=== PATIENT | male | born 1940 | race Caucasian/White ===

== ENCOUNTER 2016-06-24 15:56 | Inpatient (IN) ==
[2016-06-24 18:41] LABS: Basophils % 0.2 %; Eosinophils % 0.1 %; Hematocrit 47.6 % (37.5-50.1); Immature Granulocytes % 0.3 % (0-4); Lymphocytes # 2.6 K/mcL (0.6-4.6); Lymphocytes % 24.6 %; Mean Corpuscular HGB Conc 33.6 g/dL (31.6-35.5); Mean Corpuscular Hemoglobin 29.7 pg (28.0-33.3); Mean Corpuscular Volume 88.3 fL (83.0-100.0); Mean Platelet Volume 10.3 fL (9.4-12.4); Monocytes # 0.6 K/mcL (0.0-1.3); Monocytes % 5.4 %; Neutrophils # 7.3 K/mcL (1.6-8.9); Platelet Count 213 K/mcL (140-400); Red Blood Count 5.39 M/mcL (4.19-5.50); Red Cell Distribution Width 12.6 % (11.5-14.5); Segmented Neutrophils % 69.4 %
[2016-06-24 18:50] LABS: BUN/Creatinine Ratio 21 (6-26); Blood Urea Nitrogen 18 mg/dL (8-26); Calcium 10.1 mg/dL (8.6-10.8); Carbon Dioxide 21 mEq/L (19-29); Chloride 103 mEq/L (98-109); Glucose 158 mg/dL (70-99); Osmolality,Calculated 289 (280-300); Potassium 4.5 mEq/L (3.5-4.5); Sodium 137 mEq/L (136-145); eGFR For African Americans > 60 (> 60); eGFR For Non-African Americans > 60 (> 60)
[2016-06-24 18:57] LABS: Prothrombin Time 11.2 Seconds (9.4-12.1)
[2016-06-24] MEDS ORDERED: Aspirin 81 MG TAB.CHEW PO ONE (19:12)
[2016-06-24] MEDS ORDERED: *HR* Heparin 5,000 UNIT/ML VIAL IVP PRN ×2 (19:26)
[2016-06-24] MEDS ORDERED: *HR* Heparin 5,000 UNIT/ML VIAL IVP ONE (19:26)
[2016-06-24] MEDS ORDERED: Heparin 25,000 UNIT/500 ML D5W 25,000 UNIT/500 ML MLS IVC SCH (19:30)
--- NOTE | 2016-06-24 19:32 | Emergency Department Note ---
Disposition Clinical Impression: Non-STEMI (non-ST elevated myocardial infarction) Disposition: Admitted As Inpatient Condition: Good Time of Disposition: 19:33 Chest Pain HPI - General Chief Complaint: ED Chest Pain Stated Complaint: Abnormal EKG/Sent from Time Seen by Provider: 06/24/16 18:19 Source: patient Limitations: no limitations Vital Signs Reviewed: Yes Nursing Notes Reviewed: Yes - History of Present Illness HPI Narrative: 75-year-old male presents with concerns of epigastric pain and indigestion. Patient states symptoms have been intermittent over the past 5 days with exertion and at rest. Pt denies diaphoresis, palpitations, near syncopal symptoms, chest pain. No history of cardiac disease in the past. Patient's only risk factor is a family history of cardiac disease. Otherwise patient does not smoke, have hypertension or hyperlipidemia or diabetes. Severity scale (1-10): 6 - Related Data Home Medications Medication Instructions Recorded Confirmed No Known Home Drugs 06/24/16 06/24/16 Allergies Allergy/AdvReac Type Severity Reaction Status Date / Time No Known Allergies Allergy Verified 06/24/16 16:22 All systems ED: reviewed and negative except as stated. Constitutional: Denies: fever, chills Cardiovascular: Denies: chest pain, palpitations, dyspnea on exertion, syncope Respiratory: Denies: cough, dyspnea Gastrointestinal: Reports: abdominal pain. Denies: nausea, vomiting, diarrhea Genitourinary: Denies: urgency, dysuria Chest Pain PMH - Past Medical History Medical history: Reports: non-contributory, GERD Psychiatric history: Reports: no psych history - Social History Smoking Status: Never smoker Alcohol use: Reports: none Drug use: Reports: none Physical Exam General: Alert and in no acute distress Skin: Warm, dry, intact Head: Normocephalic and atraumatic Neck: Supple, trachea midline and no tenderness Cardiovascular: RRR, no murmur, normal perfusion Respiratory: CTAB, no wheezing, cough, or respiratory distress Musculoskeletal: Normal strength, no tenderness, swelling or deformity GI: Soft, nontender, nondistended. Bowel sounds present Neuro: A&O to person, place, time and situation. No focal deficits noted on exam Psychiatric: cooperative and appropriate mood and affect. - General Limitations: no limitations General appearance: alert, in no apparent distress Course Vital Signs Temperature 98.0 F 06/24/16 16:17 Pulse Rate 60 06/24/16 16:17 Respiratory Rate 16 06/24/16 16:17 Blood Pressure 145/78 06/24/16 16:17 O2 Sat by Pulse Oximetry 96 06/24/16 16:17 Temperature 97.8 F 06/24/16 21:54 Pulse Rate 63 06/24/16 21:54 Respiratory Rate 16 06/24/16 21:54 Blood Pressure 127/72 06/24/16 21:54 O2 Sat by Pulse Oximetry 96 06/24/16 21:54 Oxygen Delivery Oxygen Delivery Room Air Chest Pain - MDM Narrative Medical decision making narrative: EEG did not show evidence of STEMI. Patient had elevated troponin. He will be admitted to the hospital for further care and evaluation. He was given aspirin in the emergency department and started on heparin. Patient reports a mild sensation of indigestion but denies chest pain, nausea, vomiting, diaphoresis or palpitations. - Medical Records Medical records reviewed: Yes I reviewed the patient's medical records. - Lab Data Lab results reviewed: Yes I reviewed the patient's lab results. Result diagrams: 06/24/16 18:29 06/24/16 18:29 Lab Results 06/24/16 06/24/16 06/24/16 Range/Units 18:29 18:29 18:29 WBC 10.6 (4.3-11.1) K/mcL RBC 5.39 (4.19-5.50) M/mcL Hgb 16.0 (12.9-16.9) g/dL Hct 47.6 (37.5-50.1) % MCV 88.3 (83.0-100.0) fL MCH 29.7 (28.0-33.3) pg MCHC 33.6 (31.6-35.5) g/dL RDW 12.6 (11.5-14.5) % Plt Count 213 (140-400) K/mcL MPV 10.3 (9.4-12.4) fL Immature Gran % 0.3 (0-4) % Seg Neutrophils % 69.4 % Lymphocytes % 24.6 % Monocytes % 5.4 % Eosinophils % 0.1 % Basophils % 0.2 % Neutrophils # 7.3 (1.6-8.9) K/mcL Lymphocytes # 2.6 (0.6-4.6) K/mcL Monocytes # 0.6 (0.0-1.3) K/mcL Eosinophils # 0.0 (0.0-0.6) K/mcL Basophils # 0.0 (0.0-0.2) K/mcL PT 11.2 (9.4-12.1) Seconds INR 1.0 APTT 25.9 L (26.0-36.0) Seconds Sodium 137 (136-145) mEq/L Potassium 4.5 (3.5-4.5) mEq/L Chloride 103 (98-109) mEq/L Carbon Dioxide 21 (19-29) mEq/L BUN 18 (8-26) mg/dL Creatinine 0.87 (0.72-1.25) mg/dL Est GFR ( Amer) > 60 (> 60) Est GFR (Non-Af Amer) > 60 (> 60) BUN/Creatinine Ratio 21 (6-26) Glucose 158 H (70-99) mg/dL Calculated Osmolality 289 (280-300) Calcium 10.1 (8.6-10.8) mg/dL Troponin I (0-0.03) ng/mL 06/24/16 Range/Units 18:29 WBC (4.3-11.1) K/mcL RBC (4.19-5.50) M/mcL Hgb (12.9-16.9) g/dL Hct (37.5-50.1) % MCV (83.0-100.0) fL MCH (28.0-33.3) pg MCHC (31.6-35.5) g/dL RDW (11.5-14.5) % Plt Count (140-400) K/mcL MPV (9.4-12.4) fL Immature Gran % (0-4) % Seg Neutrophils % % Lymphocytes % % Monocytes % % Eosinophils % % Basophils % % Neutrophils # (1.6-8.9) K/mcL Lymphocytes # (0.6-4.6) K/mcL Monocytes # (0.0-1.3) K/mcL Eosinophils # (0.0-0.6) K/mcL Basophils # (0.0-0.2) K/mcL PT (9.4-12.1) Seconds INR APTT (26.0-36.0) Seconds Sodium (136-145) mEq/L Potassium (3.5-4.5) mEq/L Chloride (98-109) mEq/L Carbon Dioxide (19-29) mEq/L BUN (8-26) mg/dL Creatinine (0.72-1.25) mg/dL Est GFR ( Amer) (> 60) Est GFR (Non-Af Amer) (> 60) BUN/Creatinine Ratio (6-26) Glucose (70-99) mg/dL Calculated Osmolality (280-300) Calcium (8.6-10.8) mg/dL Troponin I 0.68 H* (0-0.03) ng/mL - EKG Data EKG attestation: Yes I reviewed and interpreted this EKG. EKG results narrative: ECG shows a normal sinus rhythm with a rate of 82 without evidence of STEMI, unchanged from previous. Second EKG showed normal sinus rhythm with rate of 58 without evidence of STEMI. Heart Score - Score History: Moderately Suspicious EKG: Non Specific repolarisation Disturbance Age: Greater than 65 Risk Factors: 1-2 risk factors Troponin: Greater than 3x normal limit HEART Score Total: 7
[2016-06-24 20:07] LABS: Activated Partial Thrombo Time 25.9 Seconds (26.0-36.0)
--- NOTE | 2016-06-24 22:25 | Internal Med History&Physical ---
Date of Encounter: 06/24/16 Time of Encounter: 22:22 Assessment and Plan (1) Non-STEMI (non-ST elevated myocardial infarction) Current visit: Yes Status: Acute Elevated troponins with some unspecific chest pain along with epigastric symptoms. Continue with heparin drip, aspirin, statins. Echo to evaluate left ventricular function. Cardiology evaluation. Discussed with the patient and his family member. (2) Hyperglycemia Current visit: Yes Status: Acute Accuchecks Hemoglobin A1c. Insulin sliding scale. (3) Gout Current visit: Yes Status: Acute Not acute event. Check uric acid levels. Qualifiers: Gout site: unspecified site Gout etiology: unspecified cause Chronicity: chronic Presence of tophus: without tophus Qualified Code(s): M1A.9XX0 - Chronic gout, unspecified, without tophus (tophi) Internal Medicine - H&P: HPI Chief complaint: Epigastric discomfort Admitted From: Emergency Dept Plans for Post Hospital Care: Home History of present illness: Mr. Cramer is a 75 year old male but make a history of gout and he presented to the emergency department complaining of 4-5 days of persistent epigastric discomfort which partially relieved with the use of [id number] medications. The patient also states that has been complaining of some type tightness, he denies respiratory symptoms, denies cough, fever, chills, shortness of breath. 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 He Was Never a Smoker, He Does Not Drink Alcohol. He Does Not Take Any Bfet-Mdv-Bomdtsx Medications, only baby aspirin. He does not take any prescribed medications, he takes medications for his gout on a when necessary basis, he does not know the name of the medication for gout. The patient had initial workup which revealed mild elevation of troponins, he was started on heparin drip. The patient has been admitted for further management and workup. Past Med Surg Social Fam HX - Past Medical History Medical history: non-contributory, GERD Psychiatric history: no psych history - Social History Smoking Status: Never smoker Smokeless Tobacco Status: No Alcohol use: none Drug use: none Internal Medicine - H&P: Meds No Known Home Drugs 06/24/16 [History] Allergies No Known Allergies Allergy (Verified 06/24/16 16:22) All Systems PM: A 10-system review of systems was performed and is negative for pertinent findings except as documented above in the HPI. - Constitutional Constitutional: as per HPI, no chills, no fever(s), no night sweats - EENT Eyes: as per HPI, no change in vision, no discharge, no pain, no photophobia Ears: as per HPI, no ear discharge, no ear pain, no tinnitus Nose, mouth and throat: as per HPI, no dysphagia, no nasal discharge, no neck pain, no sore throat - Breasts Breasts: as per HPI - Cardiovascular Cardiovascular ROS IM: as per HPI, chest pain, no diaphoresis, no dyspnea, no lightheadedness, no palpitations, no syncope - Respiratory Respiratory: as per HPI, no cough, no dyspnea, no wheezing, no excessive phlegm production - Gastrointestinal Gastrointestinal: as per HPI, no abdominal pain, no diarrhea, no hematemesis, no hematochezia, no melena, no nausea, no vomiting - Genitourinary Genitourinary ROS male: as per HPI - Musculoskeletal Musculoskeletal ROS IM: as per HPI, no numbness, no tingling - Integumentary Integumentary IM: as per HPI, no rash, no unusual bruising - Neurological Neurological ROS: as per HPI, no confusion, no convulsions, no focal weakness, no numbness, no tingling, no tremor(s) - Psychiatric Psychiatric: as per HPI - Endocrine Endocrine IM: as per HPI - Hematologic/Lymphatic Hematologic/Lymphatic: as per HPI, no easy bruising - Allergic/Immunologic Allergic/Immunologic: as per HPI - Constitutional Vitals: Temp Pulse Resp BP Pulse Ox 97.8 F 63 16 127/72 96 06/24/16 21:54 06/24/16 21:54 06/24/16 21:54 06/24/16 21:54 06/24/16 21:54 General appearance: Present: cooperative, A&O X 3, pleasant, no acute distress - Head Head exam: Present: atraumatic, normocephalic - Eye Eye exam: Present: PERRL, conjuntiva pink, sclera anicteric Pupils: Present: PERRL - Neck Neck exam general surgery: Present: supple, trachea midline. Absent: lymphadenopathy - Respiratory Respiratory exam: Present: CTAB. Absent: accessory muscle use, rales, rhonchi, wheezes - Cardiovascular Cardiovascular exam: Present: RRR, +S1, +S2. Absent: diastolic murmur, gallop, rubs, systolic murmur - GI/Abdominal GI/Abdominal exam: Present: normal bowel sounds, soft, no peritoneal signs. Absent: distended, tenderness - Extremities Exam Extremities exam: Present: pedal edema, warm, radial pulses palpable and symetrical. Absent: calf tenderness, cyanotic Additional comments: +/+++ - Neurological Exam Neurological exam: Present: CN II-XII intact, oriented X3, no focal deficits. Absent: pronater drift, facial droop, speech deficit - Skin Skin exam: Present: dry, intact Internal Med - H&P Results - Labs CBC & Chem 7: 06/24/16 18:29 06/24/16 18:29
[2016-06-24] MEDS ORDERED: Ondansetron 4 MG/2 ML VIAL IVP PRN (22:29)
[2016-06-24] MEDS ORDERED: Nitroglycerin 0.4 MG TAB.SUBL SL PRN (22:29)
[2016-06-24] MEDS ORDERED: D5% in Water 1,000 ML IVC PRN (22:29)
[2016-06-24] MEDS ORDERED: Naloxone 0.4 MG/ML INJ IVP PRN (22:29)
[2016-06-24] MEDS ORDERED: Dextrose Gel 15 GM PO PRN ×2 (22:29)
[2016-06-24] MEDS ORDERED: *HR* Dextrose 50 % in Water (Syg) 50 ML SYRINGE IVP PRN (22:29)
[2016-06-24] MEDS ORDERED: Acetaminophen 325 MG TABLET PO PRN (22:29)
[2016-06-25] MEDS: 0.9 % Sodium Chloride 1,000 ML IVC SCH ×2 (00:29→17:44)
[2016-06-25 04:48] LABS: Basophils % 0.1 %; Eosinophils # 0.2 K/mcL (0.0-0.6); Eosinophils % 1.7 %; Hematocrit 42.8 % (37.5-50.1); Immature Granulocytes % 0.3 % (0-4); Lymphocytes # 4.9 K/mcL (0.6-4.6); Lymphocytes % 49.4 %; Mean Corpuscular HGB Conc 33.2 g/dL (31.6-35.5); Mean Corpuscular Hemoglobin 29.5 pg (28.0-33.3); Mean Platelet Volume 10.5 fL (9.4-12.4); Monocytes # 0.6 K/mcL (0.0-1.3); Monocytes % 6.5 %; Neutrophils # 4.1 K/mcL (1.6-8.9); Platelet Count 184 K/mcL (140-400); Red Blood Count 4.81 M/mcL (4.19-5.50); Red Cell Distribution Width 12.9 % (11.5-14.5)
[2016-06-25 04:51] LABS: Hemoglobin 14.2 g/dL (12.9-16.9)
[2016-06-25 05:02] LABS: Hemoglobin A1C 7.1 %
[2016-06-25 05:04] LABS: Alanine Aminotransferase 12 Units/L (0-55); Albumin 3.3 g/dL (3.5-5.0); Albumin/Globulin Ratio 1.1 (1.1-2.2); Alkaline Phosphatase 56 Units/L (38-126); Aspartate Amino Transferase 15 Units/L (5-34); BUN/Creatinine Ratio 20 (6-26); Bilirubin,Total 0.5 mg/dL (0.2-1.2); Blood Urea Nitrogen 17 mg/dL (8-26); Calcium 9.2 mg/dL (8.6-10.8); Carbon Dioxide 24 mEq/L (19-29); Chloride 106 mEq/L (98-109); Chol/HDL Ratio 3.5 (0-4.9); Cholesterol 193 mg/dL (< 200); Globulin 3.1 g/dL (2.4-3.5); Glucose 143 mg/dL (70-99); HDL Cholesterol 55 mg/dL (40-59); LDL Cholesterol,Calculated 121 mg/dL (0-99); Magnesium 1.8 mg/dL (1.6-2.6); Osmolality,Calculated 294 (280-300); Potassium 3.9 mEq/L (3.5-4.5); Sodium 140 mEq/L (136-145); Total Protein 6.4 g/dL (6.0-8.3); Triglycerides 87 mg/dL (< 150); eGFR For African Americans > 60 (> 60); eGFR For Non-African Americans > 60 (> 60)
[2016-06-25 05:25] LABS: Thyroid Stimulating Hormone 2.868 mcIU/mL (0.350-4.840)
[2016-06-25] MEDS ORDERED: Famotidine 20 MG/2 ML VIAL IVP SCH (06:00)
[2016-06-25] MEDS: Insulin LISPRO 300 UNITS/3 ML VIAL SQ SCH ×3 (08:57→17:50)
[2016-06-25] MEDS: Aspirin 81 MG TAB.CHEW PO SCH (09:05)
--- NOTE | 2016-06-25 09:07 | Electrocardiograph Report ---
[place] [address] Test Date: 2016-06-24 Pat Name: Adal Cramer Department: 104 Room: 2N1 Gender: Head Bookkeeper: : 1940 Requested By: Any See Order Number: [id number] Reading MD: Angelo Cortez MD Measurements Intervals [place] Rate: 58 P: 8 [place]: 157 QRS: 58 QRSD: 97 T: 45 QT: 391 QTc: 388 Interpretive Statements SINUS BRADYCARDIA WITH OCCASIONAL SUPRAVENTRICULAR PREMATURE COMPLEXES Electronically Signed On 06-25-2016 9:05:52 EDT by Angelo Cortez MD
--- NOTE | 2016-06-25 10:05 | Cardiology Consult Note ---
Date of Encounter: 06/25/16 Time of Encounter: 10:03 Assessment and Plan (1) Non-STEMI (non-ST elevated myocardial infarction) Current Visit: Yes Status: Acute Symptoms suspicious for angina. Presentation consistent with NSTEMI. Recommend continue medical therapy, including aspirin/statin/heparin drip. HR 60 range - will trial low dose BB. Since currently symptoms free, will hold DAPT for now. R/B/A to a [facility] discussed with patient and family. All agree agreeable and wish to proceed. Check echocardiogram. Risk factor modification emphasized. Further recommendations to follow. Discussion w patient/family: The assessment and plan as outlined above was discussed with the patient and/or family members who expressed understanding and agreement. All questions were answered. Thank you for involving us in the care of your patient. Please call with any questions. History of Present Illness Consult date: 06/25/16 Requesting physician: Rommel Xiong Consult reason: NSTEMI Chief complaint: Chest discomfort History of present illness: Mr. Cramer is a 75 year old male with a reported history of HTN, HLD. No personal history of CAD, but reports a strong family history. Reports 4-5 days of intermittent chest discomfort. Describes as a substernal discomfort - pressure sensation. He thought it was indigestion. Went to urgent care yesterday, referred to ER. Noted elevation in troponin - most recent 1.5. Symptoms improved with medical therapy. ECG - NSR, no ST-T changes. Past Med Surg Social Fam HX - Past Medical History Medical history: non-contributory, diabetes, GERD, hyperlipidemia Psychiatric history: no psych history - Past Surgical History Surgical History: orthopedic, other - Social History Smoking Status: Never smoker Smokeless Tobacco Status: No Alcohol use: none Drug use: none - Family History Father Name: Johnny Cramer Family Member Ethnicity: Non- Living Status: Age at : 48 Cause of : Heart attack Hx Family Cardiac Disorders: Yes Medications and Allergies No Known Home Drugs 06/24/16 [History] Allergies No Known Allergies Allergy (Verified 06/24/16 16:22) All Systems Review: A 10-system review of systems was performed and is negative for pertinent findings except as documented above in the HPI. - Cardiovascular Cardiovascular: as per HPI, chest pain at rest, chest pain with exertion - Gastrointestinal Gastrointestinal: abdominal pain Physical Examination Vital Signs, Last 4 Hours Temp Pulse Resp BP Pulse Ox 06/25/16 07:24 97.9 F 62 16 120/75 96 General: Conversant, No Apparent Distress HEENT: Atraumatic, Normocephaly, Mucus Membranes Moist Neck: No JVD, Normal carotid pulses Cardiac: Reg Rate and Rhythm, Normal S1 and S2, No Murmur Lungs: Normal Breath Sounds, No Wheeze, Rales, Rhonchi Neuro: Alert and responsive, No focal deficits noted Abdomen: Soft, Non-Tender Skin: No rashes noted on visualized skin Musculoskeletal: No Chest Wall Tenderness Extremities: No Clubbing, No Cyanosis, No Edema Results 06/25/16 04:04 06/25/16 04:04 Lab Results 06/25/16 06/25/16 06/25/16 01:03 04:04 04:04 WBC 9.9 Hgb 14.2 D Hct 42.8 Plt Count 184 APTT Sodium 140 Potassium 3.9 Chloride 106 Carbon Dioxide 24 BUN 17 Creatinine 0.83 Glucose 143 H Calcium 9.2 Magnesium 1.8 Total Bilirubin 0.5 AST 15 ALT 12 Alkaline Phosphatase 56 Troponin I 1.50 H* B-Natriuretic Peptide TSH 2.868 06/25/16 06/25/16 06/25/16 04:04 04:04 07:35 WBC Hgb Hct Plt Count APTT 37.5 H Sodium Potassium Chloride Carbon Dioxide BUN Creatinine Glucose Calcium Magnesium Total Bilirubin AST ALT Alkaline Phosphatase Troponin I 1.46 H* B-Natriuretic Peptide 108 H TSH - EKG Interpretation EKG results cardiology: personally reviewed Consult Discharge Plan - Plan Referrals: NO,PCP [Primary Care Provider] -
--- NOTE | 2016-06-25 10:26 | Internal Med Progress Note ---
<Héctor Easley - Last Filed: 06/25/16 10:34> Date of Encounter: 06/25/16 Time of Encounter: 10:21 - Assessment and plan (1) Non-STEMI (non-ST elevated myocardial infarction) Current Visit: Yes Status: Acute Assessment and plan: Patient reported 4-5 days history of intermittent chest discomfort/pressure. Was found to have elevated troponin of 0.68 in the ED. EKG x2 were normal sinus rhythm without st changes or t wave depressions. Troponins 0.68, 1.46. Continue heparin drip Aspirin, lipitor, beta jarad Echo pending. NPO Cardio note reviewed. Patient to have LHC. (2) DVT prophylaxis Current Visit: Yes Status: Acute Assessment and plan: On heparin drip. - Subjective Interval history: Mr. Cramer is a 75 year old male wit history of hypertension, hyperlipidemia , and gout who presented to the ED with complaint of chest discomfort described as pressure and tightness that has been going on for about 5 days intermittently prior to arrival. Patient reports he took a yellow pill for heartburn with some relief, but returned the following day. Patient reports family history of cardiac disease, no history of tobacco use. Patient denies fevers, chills, sweats, headaches, dizziness, lightheadedness, chest "pain", shortness of breath, changes in bowels or bladder, weakness, or loss of sensation. On workup in the ED, the patient was found to have an elevated troponin of 0.68. EKG x2 revealed normal sinus rhythm without st changes or t wave inversions. Patient was admitted for further workup of elevated troponins. Patient at this time denies chest pain or pressure, shortness of breath, epigastric tenderness, pressure, or discomfort at this time. - Constitutional Vitals: Temp Pulse Resp BP Pulse Ox 97.9 F 62 16 120/75 96 06/25/16 07:24 06/25/16 07:24 06/25/16 07:24 06/25/16 07:24 06/25/16 07:24 General appearance: Present: cooperative, A&O X 3, pleasant, no acute distress, answers questions appropriately - Head Head exam: Present: atraumatic, normal inspection, normocephalic - Eye Eye exam: Present: normal appearance - ENT ENT exam: Present: mucous membranes moist, normal exam, normal external ear exam , normal oropharynx - Neck Neck exam general surgery: Present: full ROM, normal inspection, supple, trachea midline. Absent: tenderness - Respiratory Respiratory exam: Present: CTAB. Absent: rales, rhonchi, wheezes - Cardiovascular Cardiovascular exam: Present: RRR, +S1, +S2. Absent: diastolic murmur, JVD, systolic murmur - GI/Abdominal GI/Abdominal exam: Present: normal bowel sounds, soft. Absent: distended, guarding, tenderness - Extremities Exam Extremities exam: Present: full ROM, normal inspection, warm. Absent: pedal edema, tenderness - Neurological Exam Neurological exam: Present: alert, CN II-XII intact, normal gait, oriented X3, no focal deficits, strengths equal and symetr throughout. Absent: facial droop , speech deficit - Psychiatric Psychiatric exam: Present: normal affect, normal mood - Skin Skin exam: Present: dry, intact, normal color, warm. Absent: diaphoretic, erythema, pallor Internal Medicine: Result - Labs CBC & Chem 7: 06/25/16 04:04 06/25/16 04:04 Labs: Short CBC 06/25/16 Range/Units 04:04 WBC 9.9 (4.3-11.1) K/mcL Hgb 14.2 D (12.9-16.9) g/dL Hct 42.8 (37.5-50.1) % Plt Count 184 (140-400) K/mcL Neutrophils # 4.1 (1.6-8.9) K/mcL BMP 06/25/16 04:04 Sodium 140 Potassium 3.9 Chloride 106 Carbon Dioxide 24 BUN 17 Creatinine 0.83 Glucose 143 H Calcium 9.2 Cardiac Enzymes 06/25/16 06/25/16 Range/Units 01:03 07:35 Troponin I 1.50 H* 1.46 H* (0-0.03) ng/mL Liver Function 06/25/16 Range/Units 04:04 Total Bilirubin 0.5 (0.2-1.2) mg/dL AST 15 (5-34) Units/L ALT 12 (0-55) Units/L Alkaline Phosphatase 56 (38-126) Units/L Albumin 3.3 L (3.5-5.0) g/dL - ABG Interpretation ABG results: PT/INR, D-dimer PT 11.2 Seconds (9.4-12.1) 06/24/16 18:29 Consult Discharge Plan - Plan Referrals: NO,PCP [Primary Care Provider] - <Sincere Ramos - Last Filed: 06/25/16 18:21> Date of Encounter: 06/25/16 - Constitutional Vitals: Temp Pulse Resp BP Pulse Ox 97.7 F 78 18 121/69 97 06/25/16 15:00 06/25/16 15:00 06/25/16 15:00 06/25/16 15:00 06/25/16 15:00 Internal Medicine: Result - Labs CBC & Chem 7: 06/25/16 04:04 06/25/16 04:04 Labs: Short CBC 06/25/16 Range/Units 04:04 WBC 9.9 (4.3-11.1) K/mcL Hgb 14.2 D (12.9-16.9) g/dL Hct 42.8 (37.5-50.1) % Plt Count 184 (140-400) K/mcL Neutrophils # 4.1 (1.6-8.9) K/mcL BMP 06/25/16 04:04 Sodium 140 Potassium 3.9 Chloride 106 Carbon Dioxide 24 BUN 17 Creatinine 0.83 Glucose 143 H Calcium 9.2 Cardiac Enzymes 06/25/16 06/25/16 Range/Units 01:03 07:35 Troponin I 1.50 H* 1.46 H* (0-0.03) ng/mL Liver Function 06/25/16 Range/Units 04:04 Total Bilirubin 0.5 (0.2-1.2) mg/dL AST 15 (5-34) Units/L ALT 12 (0-55) Units/L Alkaline Phosphatase 56 (38-126) Units/L Albumin 3.3 L (3.5-5.0) g/dL - ABG Interpretation ABG results: PT/INR, D-dimer PT 11.2 Seconds (9.4-12.1) 06/24/16 18:29 - Attending Attestation I examined this patient and my medical decision-making was reviewed with the THREAT MONITORING ANALYST/PA/Advanced Practice Nurse/Resident Physician. I agree with the documented findings, disposition and treatment plan as described except to the extent set forth below. S/P cardiac cath awaiting results.
--- NOTE | 2016-06-25 10:42 | Electrocardiograph Report ---
[address] [place] [address] Test Date: 2016-06-24 Pat Name: Adal Cramer Department: 102 Room: 2NE31 Gender: M Ethernet Network Architect: : 1940 Requested By: Shakir Santos Order Number: [id number] Reading MD: Angelo Cortez MD Measurements Intervals [place] Rate: 82 P: 85 ID: [id number] QRS: 68 QRSD: 104 T: 37 QT: 370 QTc: 409 Interpretive Statements SINUS RHYTHM POSSIBLE INFERIOR MYOCARDIAL INFARCTION, PROBABLY OLD Electronically Signed On 06-25-2016 10:41:30 EDT by Angelo Cortez MD
--- NOTE | 2016-06-25 10:43 | Electrocardiograph Report ---
[place] [address] Test Date: 2016-06-25 Pat Name: Adal Cramer Department: 111 Room: 2NE31 Gender: M Rotor Pilot: DANIEL : 1940 Requested By: Sincere Ramos Order Number: [id number] Reading MD: Angelo Cortez MD Measurements Intervals [place] Rate: 57 P: 75 HI: 184 QRS: 56 QRSD: 107 T: 31 QT: 413 QTc: 406 Interpretive Statements SINUS BRADYCARDIA WITH SINUS ARRHYTHMIA Electronically Signed On 06-25-2016 10:42:14 EDT by Angelo Cortez MD
[2016-06-25] MEDS ORDERED: *HR* Heparin 10,000 UNIT/10 ML VIAL ONE (11:08)
[2016-06-25] MEDS ORDERED: Heparin 1,000 UNITS/500 mL NS 500 ML ONE ×2 (11:08→13:13)
[2016-06-25] MEDS ORDERED: 0.9 % Sodium Chloride 1,000 ML ONE ×2 (11:08→12:02)
[2016-06-25] MEDS ORDERED: Nitroglycerin 1,000 MCG/10 ML VIAL IV ONE (11:21)
[2016-06-25] MEDS ORDERED: *HR* Midazolam HCl 2 MG/2 ML VIAL ONE (12:02)
[2016-06-25] MEDS ORDERED: *HR* Bivalirudin 250 MG VIAL IVC ONE (12:02)
[2016-06-25] MEDS ORDERED: *HR* FentaNYL (PF) 100 MCG/2 ML VIAL ONE (12:02)
--- NOTE | 2016-06-25 12:28 | Pre-Sedation Evaluation ---
Pre-sedation evaluation - Pre-sedation checklist Date of procedure: 06/25/16 Procedure: left heart cath Recent Vitals: Last Vital Signs Temp 97.9 F 06/25/16 07:24 Pulse 62 06/25/16 07:24 Resp 16 06/25/16 07:24 BP 120/75 06/25/16 07:24 Pulse Ox 96 06/25/16 07:24 H&P (including ROS) documented in medical record: Yes Previous reaction to sedatives/anesthetics: Yes; explain in comment Dietary Status: NPO after Midnight Airway Assessment: Patient can open mouth completely, TMJ function normal, Micrognathia (under-bite, receding chin) absent, Neck with adequate range of motion Dentition: dentures removed Possible difficult airway: No ASA Classification *see protocol: CLASS II-Mild systemic disease Plan of Care: Pt appropriate candidate for procedure/moderate/conscious sedation , Risks/benefits of procedure/sedation discussed w/ patient/family
--- NOTE | 2016-06-25 12:54 | ECHO - Doppler Report ---
Echocardiogram Name: Adal Cramer Date of Study: 06/25/2016 Date: 1940 Ht: 72.0 in Medical Record#: [id number] Age: 75 Wt: 180.0 lb Gender: Male BSA: 2.04 Order #: [id number] Location: [facility] Room #: 2NE31 Reading Physician: Angelo Cortez MD, [facility] [employer] Reactor Operator: Michelle Allen RVT, [facility] Ordering Physician: Wilfrido Donovan MD Primary Physician: None Indications: ACS Impressions: Normal LV systolic function, LVEF 55%. Mild left ventricular diastolic dysfunction. Normal right ventricular size and function. Mild mitral regurgitation. No evidence of pulmonary hypertension. Left Ventricular Wall Motion: Rest Echo Findings All wall segments showed normal motion. Findings: Study Quality * Suboptimal echo windows. ECG Findings * Normal sinus rhythm. Left Ventricle * Normal LV systolic function, LVEF 55%. * Normal LV chamber size and wall thickness. * Mild left ventricular diastolic dysfunction. Right Ventricle * Normal right ventricular size and function. Left Atrium * Normal left atrial size. Right Atrium * Normal right atrial size. Aorta * Normally sized aortic root. Pericardium * There is no pericardial effusion present. IVC * Normal IVC dimensions and inspiratory collapse. Aortic Valve * Trileaflet aortic valve. * Mildly thickened aortic valve leaflets. * No aortic stenosis. * No aortic regurgitation. Mitral Valve * Mildly thickened mitral valve leaflets. * No mitral stenosis. * Mild mitral regurgitation. Tricuspid Valve * Normal tricuspid valve structure. * No tricuspid stenosis. * Trace tricuspid regurgitation. * No evidence of pulmonary hypertension. Pulmonic Valve * Pulmonic valve not well visualized. * No pulmonic stenosis. * No pulmonic regurgitation. Measurements: BP: 120/ 75 2D Normal Values RVIDd: 2.60 cm IVSd: .90 cm 0.6 - 1.0 cm LVIDd: 4.70 cm 3.7 - 5.6 cm LVPWd: 1.00 cm 0.6 - 1.1 cm LVIDs: 3.50 cm 1.5 - 3.6 cm AO: 3.30 cm < 4.0 cm %FS: 25.50 cm >25 % LA volume: 30 Mitral Valve Peak E:.44 m/sec Peak A:.56 m/sec E/A Ratio:0.8 Tricuspid Valve TV Regurg Peak Grad: 21.00mmHg TV Regurg Peak Casey: 2.29m/sec Updated by Angelo Cortez MD, [facility] on 06/25/2016 12:49:48 PM electronically signed on 06/25/2016 12:50:19 PM with status of Final Wall Motion Barrera: 1=Normal, 2=Hypokinesis, 3=Akinesis, 4=Dyskinesis, 5=Aneurysmal, 6=Hyperkinetic, X=Not Visualized (Blank)=Missing
[2016-06-25] MEDS ORDERED: *HR* Ticagrelor 90 MG TABLET ONE (13:22)
--- NOTE | 2016-06-25 16:28 | Invasive Diagnostic Lab ---
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 The left ventricle is normal and has normal contractility EF 55% Patient had successful PTCA/Drug-Eluting Stent placement in the distal RCA. Recommendations: DAPT for one year minimum uninterrupted. Optimal medical therapy of patient's disease. Aggressive risk factor modification. History/Risk Factors: GERD GOUT HYPERGLYCEMIA Diabetes Dyslipidemia Procedure Access obtained in the right Femoral artery by percutaneous puncture Patient had successful PTCA/Drug-Eluting Stent placement in the distal RCA. Complications: None Contrast: Isovue 216ml Hemodynamics: Pressures Site Systolic/ A Wave Diastolic/ V Wave End Diastolic/ Mean HR AO 115 74 91 55 AO 110 69 86 53 AO 117 70 88 57 AO 120 77 97 58 LV 93 47 47 80 LV 93 31 34 80 LV 94 39 27 87 AO 96 58 78 75 AO 105 48 72 58 AO 119 57 83 66 AO 106 49 73 53 LV Ventriculography Ejection Method: LV Gram Ejection Fraction: 55% Wall Motion: [place] Anterobasal Normal Anterolateral Normal Apical: Normal Inferoapical Normal Inferobasal Mild Hypokinesis Coronary Dominance: right Lesion Findings/Interventions * Left Main Coronary Artery The LMCA is absent. Separate ostia for LAD and Cx. * Left Anterior Descending There is a 40% stenosis in the Proximal LAD. The lesion has a LEANDRA flow of 3. There is a 65% stenosis in the Mid LAD. The lesion has a LEANDRA flow of 3. There is a 90% stenosis in the Distal LAD- small vessel. * Circumflex There is a 50% stenosis in the Proximal Circumflex. There is a 60% stenosis in the 1st Marginal. There is a 95% stenosis in the 2nd Marginal- small, diffusely diseased vessel. * Right Coronary Artery There is a 30% stenosis in the Proximal RCA. There is a 40% stenosis in the Mid RCA. There is a 12 mm long, 99% stenosis in the Distal RCA. The lesion has a LEANDRA flow of 2. An intervention was performed on the Distal RCA with a final stenosis of 0%. There were no lesion complications. The final LEANDRA flow was 3. Interventional Device(s) Vessel Segment Type Name Diameter (mm) Length (mm) Distal RCA Balloon Emerge Monorail 2 12 Distal RCA Drug Eluting Stent Synergy 2.5 12 Updated by Sonia Winn MD, FACC on 06/25/2016 4:21:27 PM Sonia Winn MD, FACC electronically signed on 06/25/2016 4:22:38 PM with status of Final
--- NOTE | 2016-06-25 16:45 | Invasive Diagnostic Lab Proc ---
Name: Adal Cramer Date of Study: 06/25/2016 Date: 1940 Ht: 72.0in Medical Record#: [id number] Age: 75 Wt: 178.35lb Gender: Male BSA: 2.03 Order #: [id number] BMI: 24.18 Physicians Procedure Physician: Sonia Winn MD, [facility] Referring MD: Referring MD: Staff Name Position Time In Dior Malloy RT (R) Monitor 12:03 PM Mandeep Mendiola RN Scrub 12:04 PM Vero Dhillon RN Vertical Boring Mill Operator 12:04 PM Indications Indication Non-Stemi Procedures Performed Procedure L HRT ARTERY/VENTRICLE ANGIO PRQ CARD TERESITA STENT W/ANGIO 1 VSL Pre-Procedure Checklist Informed consent is complete signed and on chart. H\\T\\P is on chart. ID band is on and ID verified with patient. Patient NPO for procedure The procedure was described for the patient and questions were answered. Blood Pressure: 120/75 ECG is on chart. Plan of Care Patient will tolerate the procedure without complications. Adequate level of comfort will be maintained. Hemodynamics will remain stable Patient will recover from procedure without complications. Respiratory function will be maintained. Cardiac rhythm will remain stable. Patient temperature will be maintained. Patient and/or family have verbalized understanding of the procedure. Patient Education Chief Complaint/Reason for Test: Cardiac Cath Developmental Category: Geriatric (65+ years) Developmentally Appropriate for Age: No Learning Barriers: None Education Needs: Procedure Education Method: Verbal Information Taught: Cardiac Cath Educational Evaluation: Able to repeat information Intravenous Access Time IV Size Location DC'd Fluid/Drip Rate Units RN 12:02 PM 18g 1 03/27" Patent On Arrival Lt Antecubital 0.9NaCl 25 ml/hr Vero Dhillon RN Allergies NO KNOWN DRUG ALLERGIES No Known Allergies Vital Signs Time BP (mmHg) HR (bpm) O2 Sat. RR (bpm) LOC 12:02 PM 120 / 75 62 96 % 16 5 = Fully awake and oriented or at pre-proc level 12:04 PM / % 5 = Fully awake and oriented or at pre-proc level 12:04 PM / % 5 = Fully awake and oriented or at pre-proc level 12:24 PM / % 4 = Oriented but drowsy 12:39 PM / % 4 = Oriented but drowsy 12:54 PM / % 4 = Oriented but drowsy 01:09 PM / % 4 = Oriented but drowsy 01:45 PM 126 / 68 62 98 % 16 5 = Fully awake and oriented or at pre-proc level 01:10 PM 146 / 78 67 96 % 17 01:15 PM 150 / 73 53 97 % 17 01:20 PM 140 / 72 57 98 % 17 01:25 PM 144 / 78 55 98 % 16 01:31 PM 130 / 60 % 12:25 PM 145 / 71 61 96 % 14 12:30 PM 152 / 70 56 98 % 25 12:35 PM 130 / 71 57 98 % 23 12:40 PM 133 / 70 55 98 % 12:45 PM 137 / 73 65 98 % 19 12:50 PM 136 / 72 58 98 % 19 12:55 PM 139 / 74 61 99 % 16 01:00 PM 139 / 76 64 99 % 22 01:05 PM 137 / 79 75 99 % 21 01:45 PM 126 / 68 58 100 % 18 5 = Fully awake and oriented or at pre-proc level 02:00 PM 123 / 83 60 100 % 18 5 = Fully awake and oriented or at pre-proc level 02:15 PM 105 / 49 66 98 % 18 5 = Fully awake and oriented or at pre-proc level 02:35 PM 116 / 64 58 96 % 18 5 = Fully awake and oriented or at pre-proc level 02:45 PM 116 / 67 56 98 % 18 5 = Fully awake and oriented or at pre-proc level 03:00 PM 108 / 58 53 98 % 18 5 = Fully awake and oriented or at pre-proc level 03:15 PM 116 / 67 55 98 % 18 5 = Fully awake and oriented or at pre-proc level 03:29 PM 146 / 74 56 98 % 18 5 = Fully awake and oriented or at pre-proc level 03:45 PM 119 / 71 63 98 % 18 5 = Fully awake and oriented or at pre-proc level 04:00 PM 119 / 78 60 99 % 18 5 = Fully awake and oriented or at pre-proc level 04:15 PM 124 / 71 62 99 % 18 5 = Fully awake and oriented or at pre-proc level 04:32 PM 113 / 69 55 97 % 16 5 = Fully awake and oriented or at pre-proc level Procedural Medications Time Medication Dose Units Method Given By 12:25 PM Oxygen 2 L/min nasal cannula Dior Malloy RT (R) 12:26 PM Versed 2 mg Intravenous Vero Dhillon RN 12:26 PM Fentanyl 50 mcg Intravenous Vero Dhillon RN 12:37 PM Lidocaine 2% 12 ml Subcutaneous Sonia Winn MD, FACC 12:54 PM Angiomax 0.75mg/kg bolus: 13 ml Intravenous Vero Dhillon RN 12:54 PM Angiomax 1.75mg/kg/hr: 30 ml Intravenous Vero Dhillon RN 01:04 PM Nitroglycerin 200 mcg Intracoronary Sonia Winn MD, FACC 01:35 PM Brilinta 180 mg Orally Vero Dhillon RN 01:45 PM Angiomax Autumn Langford RN ASA Classification: CLASS II- Mild systemic disease (i.e. well-controlled diabetes, hypertension, asthma, cigarette smoking) Jeaneth Score Preprocedure Postprocedure Activity 2- Moves 4 extremities sustained head lift Activity 2- Moves 4 extremities sustained head lift Circulation 2- SBP +/= 20 points of pre-anesthetic level Circulation 2- SBP +/= 20 points of pre-anesthetic level Consciousness 2- Awake and alert oriented x 3 Consciousness 2- Awake and alert oriented x 3 O2 Saturation 2- Able to maintain O2 satruation of 92% on room air O2 Saturation 2- Able to maintain O2 satruation of 92% on room air Respiratory 2- Able to deep breathe and cough well Respiratory 2- Able to deep breathe and cough well Total Score 10 Total Score 10 Contrast Agent: Isovue Diagnostic Contrast: 216 ml Total Contrast: 216 ml Fluoro Dose: 1075 mGy Activated Clotting Time Time Seconds to Clot 12:51 PM 120 Procedure Log Time Note Enter By 12:03 PM Pt arrived to can labeler 2 at 12:03 twilson 12:03 PM Patient charges- Angio tray pack, Navilyst 3mm J, Pulse Oximetry and ACIST tubing and transducer twilson 12:03 PM IV Supplies used: J loop Angio Cath. twilson 12:03 PM Dior Malloy RT (R) Position: Monitor Time in: 12:ilson 12:04 PM Mandeep Mendiola RN Position: Scrub Time in: 12:04 ilson 12:04 PM Vero Dhillon RN Position: Vertical Boring Mill Operator Time in: 12:ilson 12:04 PM Time: 12:04 Patient comfortable and pain free: Yes ilson 12:04 PM Time: 12:04LOC: 5 = Fully awake and oriented or at pre-proc level twilson 12:04 PM Case Delayed no twilson 12:24 PM Time: 12:04LOC: 5 = Fully awake and oriented or at pre-proc level twilson 12:24 PM Time: 12:04 Patient comfortable and pain free: Yes twilson 12:24 PM CathStat 12:24 PM Case Start 12:24 PM Recorded ECG: HR=60 Condition=Condition 1 12:25 PM Vitals capture started with the following parameters, Patient=Adult, Interval=5 min, Initial Cnubttcf=430 mmHg, Deflation Rate=5 mmHg, Cuff placed on Left Arm 12:25 PM Recorded ECG: HR=57 Condition=Condition 1 12: PM HR=61 bpm, BIJA=165/71 mmhg, SpO2=96.0 %, Resp=14 B/min 12:25 PM Physician arrived 12: twilson 12:25 PM Meet and greet completed twilson 12: PM Sign in performed according to hospital policy. twilson 12:25 PM Procedure start 12: twilson 12: PM Time: 12:25 Oxygen on at 2 L/min per nasal cannula by Dior Malloy (R) twilson 12: PM Time: 12: Versed 2 mg Intravenous [facility] 12: PM Time: 12:26 Fentanyl 50 mcg Intravenous Given by Vero Dhillon RN twilson 12:30 PM HR=56 bpm, WAOZ=688/70 mmhg, SpO2=98.0 %, Resp=25 B/min 12:34 PM ASA Class CLASS II- Mild systemic disease (i.e. well-controlled diabetes, hypertension, asthma, cigarette smoking) twilson 12:34 PM Pressure channel 1 zeroed. 12:35 PM Hair removed from procedure site in procedure lab using clippers. Bilateral groin prepped with Chloraprep by Dior Malloy (R), safety strap applied then patient was draped. Skin intact. twilson 12:35 PM HR=57 bpm, KIAC=013/71 mmhg, SpO2=98.0 %, Resp=23 B/min 12:36 PM Time out performed according to hospital policy twilson 12:38 PM Time: 12:37 12 ml Lidocaine 2% to right groin Subcutaneous Given by Sonia Winn MD, FACC twilson 12:38 PM Access obtained by percutaneous puncture. 5Fr 10cm Terumo Berkley sheath placed in right Femoral artery. [id number] twilson 12:39 PM Time: 12:24 Patient comfortable and pain free: Yes twilson 12:39 PM Time: 12:24LOC: 4 = Oriented but drowsy twilson 12:39 PM 5Fr FL 4 catheter inserted over the wire DNC twilson 12:39 PM Wire removed, intact. twilson 12:40 PM Recorded Pressure: Ao, HR=55, Condition=Condition 1 (Aorta) Ao 115/74/91 12:40 PM LCA angiography performed in multiple views. twilson 12:40 PM HR=55 bpm, JPZD=828/70 mmhg, SpO2=98.0 % 12:40 PM Recorded Pressure: Ao, HR=53, Condition=Condition 1 (Aorta) Ao 110/69/86 12:42 PM Recorded Pressure: Ao, HR=57, Condition=Condition 1 (Aorta) Ao 117/70/88 12:43 PM Catheter removed twilson 12:43 PM 5Fr FR 4 catheter inserted over the wire DNC twilson 12:44 PM Wire removed, intact. twilson 12:45 PM RCA angiography performed in multiple views. twilson 12:45 PM Recorded Pressure: Ao, HR=58, Condition=Condition 1 (Aorta) Ao 120/77/97 12:45 PM Inflation device was opened. twilson 12:45 PM HR=65 bpm, ISDL=614/73 mmhg, SpO2=98.0 %, Resp=19 B/min 12:47 PM Catheter removed twilson 12:47 PM 5Fr Pigtail catheter inserted over the wire DN twilson 12:47 PM Catheter selectively placed in left ventricle twilson 12:47 PM Wire removed, intact. twilson 12:47 PM Pressure channel 1 zero failed. 12:47 PM Pressure channel 1 zero failed. 12:47 PM Pressure channel 1 zeroed. 12:47 PM Recorded Pressure: LV, HR=80, Condition=Condition 1 (Left Ventricle) LV 93/47/47 12:48 PM Recorded Pressure: LV, HR=80, Condition=Condition 1 (Left Ventricle) LV 93/31/34 12:48 PM Recorded Pressure: LV, Ao, HR=81, Condition=Condition 1 (Left Ventricle) LV 94/39/27, (Aorta) Ao 96/58/78 12:49 PM Catheter removed twilson 12:49 PM Reviewing films. twilson 12:49 PM Coronary Dominance: right twilson 12:50 PM Drawing an ACT twilson 12:50 PM HR=58 bpm, RKBZ=931/72 mmhg, SpO2=98.0 %, Resp=19 B/min 12:51 PM ACT is 120. twilson 12:51 PM Sheath exchanged for a 6 Fr 11 cm Cordis Zaida sheath [id number] twilson 12:51 PM PCI Status Urgent twilson 12:51 PM PCI Indication: PCI for high risk Non-STEMI or unstable angina twilson 12:54 PM Time: 12:54 Angiomax 0.75mg/kg bolus: 13 ml Intravenous Given by Vero Dhillon RN Swartz pump twilson 12:54 PM Time: 12:54 Angiomax 1.75mg/kg/hr: 30 ml Intravenous Given by Vero Dhillon RN Swartz pump twilson 12:54 PM Time: 12:39LOC: 4 = Oriented but drowsy twilson 12:54 PM Time: 12:39 Patient comfortable and pain free: Yes twilson 12:55 PM 6Fr IM Runway guide catheter was used to cannulate the PCI vessel successfully. reused? No twilson 12:55 PM HR=61 bpm, JRMX=676/74 mmhg, SpO2=99.0 %, Resp=16 B/min 12:56 PM .014 Prowater 180cm guide wire across target lesion- successful. reused? No twilson 12:57 PM Recorded Pressure: Ao, HR=58, Condition=Condition 1 (Aorta) Ao 105/48/72 12:57 PM 2.0 mm x 12 mm Emerge Monorail balloon across target lesion- successful. reused? No twilson 12:59 PM Balloon inflated @ 10 sandro for 20 seconds twilson 01:00 PM Balloon catheter removed intact. twilson 01:00 PM HR=64 bpm, NJRX=349/76 mmhg, SpO2=99.0 %, Resp=22 B/min 01:01 PM 2.5mm x 12mm Synergy bioabsorbable stent across target lesion- successful Lot #[id number] twilson 01:03 PM Stent deployed @ 12 sandro for 30 seconds twilson 01:04 PM Recorded Pressure: Ao, HR=66, Condition=Condition 1 (Aorta) Ao 119/57/83 01:04 PM Stent delivery system removed intact. twilson 01:04 PM Time: 13:04 Nitroglycerin 200 mcg Intracoronary Given by Sonia Winn MD, [facility] twilson 01:05 PM HR=75 bpm, MTMG=984/79 mmhg, SpO2=99.0 %, Resp=21 B/min 01:06 PM Guide wire removed intact. twilson 01:06 PM J-wire reinserted. twilson 01:06 PM Guide catheter removed intact. twilson 01:06 PM Reviewing films. twilson 01:09 PM Time: 12:54 Patient comfortable and pain free: Yes twilson 01:09 PM Time: 12:54LOC: 4 = Oriented but drowsy twilson 01:10 PM HR=67 bpm, KMMC=847/78 mmhg, SpO2=96.0 %, Resp=17 B/min 01:11 PM Preparing to intervene on the Mid LAD twilson 01:11 PM 6Fr EBU 3.0 Medtronic guide catheter was used to cannulate the PCI vessel successfully. reused? No twilson 01:11 PM PCI lesion in Mid LAD. Pre Stenosis: 70 Pre LEANDRA Flow: 3: Complete and Brisk Flow/Perfusion twilson 01:12 PM PCI lesion in Distal RCA. Pre Stenosis: 99 Pre LEANDRA Flow: 2 twilson 01:13 PM Right Coronary, Right Posterior Descending Arteries with Right Posterolateral and Acute Marginal branches with 99 % stenosis. If graft is supplying this area, 0 % stenosis twilson 01:13 PM J-wire reinserted and guide catheter removed, intact. twilson 01:14 PM 6Fr JL3.5 Runway guide catheter was used to cannulate the PCI vessel successfully. reused? No twilson 01:15 PM HR=53 bpm, CEWG=142/73 mmhg, SpO2=97.0 %, Resp=17 B/min 01:16 PM Recorded Pressure: Ao, HR=53, Condition=Condition 1 (Aorta) Ao 106/49/73 01:17 PM Prowater reinserted. twilson 01:20 PM HR=57 bpm, WPOG=109/72 mmhg, SpO2=98.0 %, Resp=17 B/min 01:21 PM Unable to engage into LCA with guide. High contrast, so planning to bring patient back for planned PCI. twilson 01:22 PM Guide wire removed intact. twilson 01: PM Guide catheter removed intact. twilson : PM Time: 13:09LOC: 4 = Oriented but drowsy twilson : PM Time: 13:09 Patient comfortable and pain free: Yes twilson :25 PM Procedure completed at 13:25 twilson : PM HR=55 bpm, DVHR=002/78 mmhg, SpO2=98.0 %, Resp=16 B/min 01:26 PM Sign out completed: Radiation Dose 1075.36 mGy Fluoro Time: 13.8 Isovue 370 - 200ml contrast 216 ml given by Sonia Winn MD, [facility]. Complications: NoneCardiac Rehab Consult needed: YesConfirmed administered medications: Yes twilson : PM Isovue 370 - 500ml,1 Bottle(s) used. twilson : PM Sheath left in place to be pulled on floor/holding areaV+Pad twilson : PM Post ECG NSR twilson : PM Post Blood Pressure 144/78 twilson : PM 13:28 Post Pulses Bilateral DP 2+ twilson : PM 13:28 Post Pulses Bilateral PT 1+ twilson : PM 13:28 Post Pulses Bilateral radial 2+ twilson 01:28 PM Information taught Cardiac Cath and PCI twilson : PM Education needs Procedure, Plan of Care, and Responsibilities of Patient in Care twilson : PM Learning barriers :None twilson : PM Education Methods Verbal twilson : PM Education evaluation Able to repeat information twilson : PM Site status No bleeding/hematoma - Rt Groin as reported by Mandeep Mendiola RN at 13:29 twilson : PM Opsite applied twilson : PM Family placed in consult room. twilson 01:30 PM Mid/Distal Left Anterior Descending Coronary Artery and diagonal branches with 90% stenosis. If graft is supplying this area, 0 % stenosis twilson :31 PM Lesion found in Distal LAD. Pre Stenosis: 90 Pre LEANDRA Flow: twilson : PM Lesion found in Proximal LAD. Pre Stenosis: 40 Pre LEANDRA Flow: 3: Complete and Brisk Flow/Perfusion twilson :31 PM Proximal Left Anterior Descending Coronary Artery with 40% stenosis. If graft is supplying this territory, 0 % stenosis. twilson :31 PM PYIC=472/60 mmhg 01:31 PM Lesion found in Proximal RCA. Pre Stenosis: 30 Pre LEANDRA Flow: twilson 01:32 PM Lesion found in Mid RCA. Pre Stenosis: 40 Pre LEANDRA Flow: twilson 01:33 PM No 2N beds, patient will recover in holding room. twilson 01:33 PM Lesion found in Proximal Circumflex. Pre Stenosis: 50 Pre LEANDRA Flow: twilson 01:33 PM Lesion found in 1st Marginal. Pre Stenosis: 60 Pre LEANDRA Flow: twilson 01:34 PM Lesion found in 2nd Marginal. Pre Stenosis: 95 Pre LEANDRA Flow: twilson 01:34 PM Circumflex, Obtuse Marginal, Left Posterior Descending, and Left Posterolateral Coronary Arteries with 95 % stenosis. If graft is supplying this area, 0 % stenosis twilson 01:35 PM Time: 13:35 Brilinta 180 mg Orally Given by Vero Dhillon RN twilson 01:41 PM Report given to Tereza LINDSEY Pt taken to Holding room Room #4. 13:41 twilson 01:41 PM Patient out of room: 13:41 twilson 01:45 PM patient arrive to HR 4 mprater 03:25 PM patient c/o headache 08/31. tylenol 650mg po given mprater 04:07 PM Arterial sheath pulled using manual compression and V+ Pad for 15 minutes by Tereza Latif RT (R) mprater 04:28 PM Report called to Any Kayley mprater 04:38 PM patient transported to E mprater 04:39 PM Activity: 2 Circulation: 2 Consciousness: 2 O2 Saturation: 2 Respiration: 2 mprater Complications Complication None Hemodynamics Pressures Site Systolic/A Wave Diastolic/V Wave Mean AO 115 74 91 AO 110 69 86 AO 117 70 88 AO 120 77 97 LV 93 47 47 LV 93 31 34 LV 94 39 27 AO 96 58 78 AO 105 48 72 AO 119 57 83 AO 106 49 73 Post Procedure Information Blood Pressure: 144/78 mmHg Rhythm: NSR Post procedural instructions were not given Site Checks Time Location Status Staff Sheath In? Note 01:29 PM Rt Groin No bleeding/hematoma Mandeep Mendiola RN 01:45 PM Rt Groin No bleeding/ No Hematoma Autumn Saldivar RN Yes 02:00 PM Rt Groin No bleeding/ No Hematoma Autumn Saldivar RN Yes 02:15 PM Rt Groin No bleeding/ No Hematoma Michoacano Tang RN Yes 02:35 PM Rt Groin No bleeding/ No Hematoma [place]oacano Tang RN Yes 02:45 PM Rt Groin No bleeding/ No Hematoma [place]oacano Tang RN Yes 03:00 PM Rt Groin No bleeding/ No Hematoma [place]ano Tang RN Yes 03:15 PM Rt Groin No bleeding/ No Hematoma Autumn Saldivar RN Yes 03:29 PM Rt Groin No bleeding/ No Hematoma Autumn Saldivar RN Yes 03:45 PM Rt Groin No bleeding/ No Hematoma [place]oacano Tang RN Yes 04:00 PM Rt Groin No bleeding/ No Hematoma Autumn Saldivar RN Yes 04:07 PM SHEATH PULLED 04:15 PM Rt Groin No bleeding/ No Hematoma Tereza Latif RT (R) MANUAL PRESSURE 04:32 PM Rt Groin No bleeding/ No Hematoma Autumn Saldivar RN Pulses Time Site Pre-Procedure Post-Procedure Note 06/25/2016 12:02:00 PM Bilateral DP 2+ 06/25/2016 12:02:00 PM Bilateral PT 1+ 06/25/2016 12:02:00 PM Bilateral radial 2+ 1:28:00 PM Bilateral DP 2+ 1:28:00 PM Bilateral PT 1+ 1:28:00 PM Bilateral radial 2+ 06/25/2016 1:45:00 PM Bilateral DP 2+ 06/25/2016 2:00:00 PM Bilateral DP 2+ 06/25/2016 2:15:00 PM Bilateral DP 2+ 06/25/2016 3:00:00 PM Bilateral DP 2+ 06/25/2016 3:29:00 PM Bilateral DP 2+ 06/25/2016 4:00:00 PM Bilateral DP 2+ 06/25/2016 4:32:00 PM Bilateral DP 2+ Updated by Autumn Saldivar RN on 06/25/2016 4:39:11 PM Autumn Saldivar RN electronically signed on 06/25/2016 4:39:43 PM with status of Final
[2016-06-25] MEDS: Metoprolol XL (24 HR) Succ 25 MG TAB.ER.24H PO SCH (17:50)
[2016-06-25] MEDS ORDERED: Insulin LISPRO 300 UNITS/3 ML VIAL SQ SCH (21:00)
[2016-06-26 06:13] LABS: INR 1.1; Prothrombin Time 11.8 Seconds (9.4-12.1)
[2016-06-26 06:15] LABS: Activated Partial Thrombo Time 24.4 Seconds (26.0-36.0)
[2016-06-26 06:29] LABS: BUN/Creatinine Ratio 16 (6-26); Blood Urea Nitrogen 13 mg/dL (8-26); Calcium 8.6 mg/dL (8.6-10.8); Carbon Dioxide 21 mEq/L (19-29); Chloride 109 mEq/L (98-109); Glucose 114 mg/dL (70-99); Osmolality,Calculated 291 (280-300); Sodium 140 mEq/L (136-145); eGFR For African Americans > 60 (> 60); eGFR For Non-African Americans > 60 (> 60)
--- NOTE | 2016-06-26 07:56 | Internal Med Progress Note ---
<Héctor Easley - Last Filed: 06/26/16 10:15> Date of Encounter: 06/26/16 Time of Encounter: 07:56 - Assessment and plan (1) Non-STEMI (non-ST elevated myocardial infarction) Current Visit: Yes Status: Acute Assessment and plan: Patient reported 4-5 days history of intermittent chest discomfort/pressure. Was found to have elevated troponin of 0.68 in the ED. EKG x2 were normal sinus rhythm without st changes or t wave depressions. Troponins 0.68, 1.46. LHC 06/25/16 revealed severe three vessel coronary artery disease (LAD, RCA, Circumflex), LV normal with EF of 55%, and successful PTCA/TERESITA placed in distal RCA. Echo 06/25/16 revealed normal LV systolic function LVEF 55%, mild LV diastolic dysfunction, normal RV, mild mitral regurgitation Continue Aspirin, lipitor, beta jarad, plavix Cardiac diet Possible discharge. Pending final cardio recommendations. (2) CAD (coronary artery disease) Current Visit: Yes Status: Acute Assessment and plan: Continue per plan in assessment above. Qualifiers: Coronary Disease-Associated Artery/Lesion type: unspecified vessel or lesion type [place] vs. transplanted heart: [place] heart Associated angina: with unspecified angina Qualified Code(s): I25.119 - Atherosclerotic heart disease of [place] coronary artery with unspecified angina pectoris (3) DVT prophylaxis Current Visit: Yes Status: Acute Assessment and plan: started on Plavix. Continue encouraging ambulation. - Subjective Interval history: Patient reports doing well overnight. Denies chest pain or pressure, shortness of breath, epigastric tenderness or pressure, or discomfort overnight. Patient denies fevers, chills, sweats, headaches, changes in vision or hearing, chest pain, nausea, vomiting, shortness of breath, abdominal pain, changes in bowels or bladder, weakness, or loss of sensation. - Constitutional Vitals: Temp Pulse Resp BP Pulse Ox 98.2 F 61 16 112/70 97 06/26/16 05:38 06/26/16 05:38 06/26/16 05:38 06/26/16 05:38 06/26/16 05:38 General appearance: Present: cooperative, A&O X 3, pleasant, no acute distress, answers questions appropriately - Head Head exam: Present: atraumatic, normal inspection, normocephalic - Eye Eye exam: Present: normal appearance - ENT ENT exam: Present: mucous membranes moist, normal exam, normal external ear exam , normal oropharynx - Neck Neck exam general surgery: Present: full ROM, normal inspection, supple, trachea midline. Absent: tenderness - Respiratory Respiratory exam: Present: CTAB. Absent: rales, rhonchi, wheezes - Cardiovascular Cardiovascular exam: Present: RRR, +S1, +S2. Absent: diastolic murmur, JVD, systolic murmur - GI/Abdominal GI/Abdominal exam: Present: normal bowel sounds, soft. Absent: distended, guarding, tenderness - Extremities Exam Extremities exam: Present: full ROM, normal inspection, warm, radial pulses palpable and symetrical. Absent: calf tenderness, pedal edema, tenderness - Neurological Exam Neurological exam: Present: alert, normal gait, oriented X3, no focal deficits, strengths equal and symetr throughout. Absent: motor sensory deficit, facial droop, speech deficit - Psychiatric Psychiatric exam: Present: normal affect, normal mood - Skin Skin exam: Present: dry, intact, normal color, warm. Absent: diaphoretic, erythema, pallor Internal Medicine: Result - Labs CBC & Chem 7: 06/25/16 04:04 06/26/16 05:33 Labs: BMP 06/26/16 05:33 Sodium 140 Potassium 4.0 Chloride 109 Carbon Dioxide 21 BUN 13 Creatinine 0.82 Glucose 114 H Calcium 8.6 Cardiac Enzymes 06/25/16 Range/Units 07:35 Troponin I 1.46 H* (0-0.03) ng/mL - ABG Interpretation ABG results: PT/INR, D-dimer PT 11.8 Seconds (9.4-12.1) 06/26/16 05:33 Consult Discharge Plan - Plan Instructions: Metoprolol (By mouth), Nitroglycerin, Rapid Release (By mouth), Atorvastatin (By mouth), Clopidogrel (By mouth), Myocardial Infarction (DC), Left Heart Catheterization (DC) Additional Instructions: Follow up with Cardiology within 7 days regarding this hospital stay. Follow up with your primary care physician within 7 days. You have been sent home with scripts for Plavix, aspirin, Metoprolol, and lipitor. Take these medications as directed. Seek medical attention if site of intervention becomes significantly more painful, red, swollen, loss of sensation or numbing, or drainage. It is recommended that you do not perform strenuous activities through the next two weeks. You will be sent home with a work note that attests to these limitations. Referrals: Jasmeet Rodríguez MD [Primary Care Provider] - 07/05/16 9:45 am Isaura Grant CNP [Partnered Physician] - 07/18/16 2:30 pm Prescriptions: Nitroglycerin 0.4 mg SL Q5MIN PRN #12 tab.subl PRN Reason: Chest Pain Aspirin 81 mg PO DAILY #30 tab.chew Atorvastatin [Lipitor] 80 mg PO HS #30 tablet Clopidogrel [Plavix] 75 mg PO DAILY #30 tablet Metoprolol XL (24 HR) Succ [Toprol Xl] 12.5 mg PO DAILY #30 tab.er.24h <Sincere Ramos - Last Filed: 06/26/16 16:52> Date of Encounter: 06/26/16 - Constitutional Vitals: Temp Pulse Resp BP Pulse Ox 97.8 F 63 16 121/67 97 06/26/16 11:36 06/26/16 11:36 06/26/16 11:36 06/26/16 11:36 06/26/16 11:36 Internal Medicine: Result - Labs CBC & Chem 7: 06/25/16 04:04 06/26/16 05:33 Labs: BMP 06/26/16 05:33 Sodium 140 Potassium 4.0 Chloride 109 Carbon Dioxide 21 BUN 13 Creatinine 0.82 Glucose 114 H Calcium 8.6 - ABG Interpretation ABG results: PT/INR, D-dimer PT 11.8 Seconds (9.4-12.1) 06/26/16 05:33 - Attending Attestation I examined this patient and my medical decision-making was reviewed with the POKER [employer]ER/PA/Advanced Practice Nurse/Resident Physician. I agree with the documented findings, disposition and treatment plan as described except to the extent set forth below.
[2016-06-26] MEDS: Metoprolol XL (24 HR) Succ 25 MG TAB.ER.24H PO SCH (10:09)
[2016-06-26] MEDS: Aspirin 81 MG TAB.CHEW PO SCH (10:09)
[2016-06-26] MEDS: Insulin LISPRO 300 UNITS/3 ML VIAL SQ SCH ×2 (10:10→12:10)
[2016-06-26 11:40] VITALS: BP 121/67
--- NOTE | 2016-06-26 12:58 | Cardiology Progress Note ---
Date of Encounter: 06/26/16 Time of Encounter: 12:52 Assessment and Plan (1) Non-STEMI (non-ST elevated myocardial infarction) Current Visit: Yes Status: Acute Presentation consistent with NSTEMI. Culprit stenosis in the distal RCA s/p PCI with TERESITA x1. LV EF preserved. Importance of medical therapy emphasized, including DAPT for one year without interruption. Continue statin, beta jarad therapy. Risk factor modification emphasized. No further inpatient cardiology recommendations. Follow-up within one week. Please call with any questions or concerns. Discussion w patient/family: The assessment and plan as outlined above was discussed with the patient and/or family members who expressed understanding and agreement. All questions were answered. Thank you for involving us in the care of your patient. Please call with any questions. Subjective Principal diagnosis: Chest discomfort Interval history: Patient has done well since PCI yesterday. Denied chest pain overnight. No symptoms reported during my evaluation earlier this morning. Anxious to be discharged. Objective Vital Signs, Last 4 Hours Temp Pulse Resp BP Pulse Ox 06/26/16 11:36 97.8 F 63 16 121/67 97 General: Conversant, No Apparent Distress HEENT: Atraumatic, Normocephaly, Mucus Membranes Moist Neck: No JVD, Normal carotid pulses Cardiac: Reg Rate and Rhythm, Normal S1 and S2, No Murmur Lungs: Normal Breath Sounds, No Wheeze, Rales, Rhonchi Neuro: Alert and responsive, No focal deficits noted Abdomen: Soft, Non-Tender Skin: No rashes noted on visualized skin Musculoskeletal: No Chest Wall Tenderness Extremities: No Clubbing, No Cyanosis, No Edema Results 06/25/16 04:04 06/26/16 05:33 Lab Results 06/26/16 06/26/16 05:33 05:33 INR 1.1 APTT 24.4 L Sodium 140 Potassium 4.0 Chloride 109 Carbon Dioxide 21 BUN 13 Creatinine 0.82 Glucose 114 H Calcium 8.6 - Imaging and Cardiology Echo: report reviewed Cardiac cath: report reviewed - EKG Interpretation EKG results cardiology: personally reviewed Consult Discharge Plan - Plan Referrals: Jasmeet Rodríguez MD [Partnered Physician] - 07/05/16 9:45 am Isaura Grant CNP [Partnered Physician] - 07/18/16 2:30 pm
--- NOTE | 2016-06-26 14:56 | Discharge Summary ---
<Héctor Easley - Last Filed: 06/26/16 15:29> Date of Encounter: 06/26/16 Time of Encounter: 14:56 - Discharge Diagnosis (1) Non-STEMI (non-ST elevated myocardial infarction) Priority: Primary Status: Acute Comments: Patient reported 4-5 days history of intermittent chest discomfort/pressure. Was found to have elevated troponin of 0.68 in the ED. EKG x2 were normal sinus rhythm without st changes or t wave depressions. Troponins 0.68, 1.46. LHC 06/25/16 revealed severe three vessel coronary artery disease (LAD, RCA, Circumflex), LV normal with EF of 55%, and successful PTCA/TERESITA placed in distal RCA. Echo 06/25/16 revealed normal LV systolic function LVEF 55%, mild LV diastolic dysfunction, normal RV, mild mitral regurgitation Continue Aspirin, lipitor, beta jarad, plavix Cardiac diet Follow up with Cardiology in 1 week. (2) CAD (coronary artery disease) Priority: Primary Status: Acute Comments: Continue per plan in assessment above. Qualifiers: Coronary Disease-Associated Artery/Lesion type: unspecified vessel or lesion type [place] vs. transplanted heart: [place] heart Associated angina: with unspecified angina Qualified Code(s): I25.119 - Atherosclerotic heart disease of [place] coronary artery with unspecified angina pectoris - Discharge Medications Prescriptions: Nitroglycerin 0.4 mg SL Q5MIN PRN #12 tab.subl PRN Reason: Chest Pain Aspirin 81 mg PO DAILY #30 tab.chew Atorvastatin [Lipitor] 80 mg PO HS #30 tablet Clopidogrel [Plavix] 75 mg PO DAILY #30 tablet Metoprolol XL (24 HR) Succ [Toprol Xl] 12.5 mg PO DAILY #30 tab.er.24h Home Medications: Aspirin 81 mg PO DAILY #30 tab.chew 06/26/16 [Rx] Atorvastatin [Lipitor] 80 mg PO HS #30 tablet 06/26/16 [Rx] Clopidogrel [Plavix] 75 mg PO DAILY #30 tablet 06/26/16 [Rx] Metoprolol XL (24 HR) Succ [Toprol Xl] 12.5 mg PO DAILY #30 tab.er.24h 06/26/16 [Rx] Nitroglycerin 0.4 mg SL Q5MIN PRN #12 tab.subl 06/26/16 [Rx] Allergies/Adverse Reactions: Allergies No Known Allergies Allergy (Verified 06/24/16 16:22) Procedures/tests Complete & Pending: Procedures Performed prior 72 hours Category Date Time Status CL Cardiac Catheterization [CL] Routine Documentation Spec 06/25/16 10:25 Completed ECG 12 lead ECG [ECG] Routine Y 06/25/16 00:22 Completed Date of admission: 06/24/16 22:48 Primary care physician: Jasmeet Rodríguez MD Consults: 06/25/16 10:26 Consult to Cardiac Rehabilitation-Phase1 [CONS] Routine Comment: Reason for Consult: NSTEMI Call Completed: No Discharging clinician: Sincere Ramos (Héctor Easley) Anticipated date of discharge: 06/26/16 - Patient Status Disposition: Home, Self-Care Condition: Good Functional capacity at discharge: independent ambulation Overall status at discharge: patient is progressing back to baseline - Discharge Instructions Instructions: Metoprolol (By mouth), Nitroglycerin, Rapid Release (By mouth), Atorvastatin (By mouth), Clopidogrel (By mouth), Myocardial Infarction (DC), Left Heart Catheterization (DC) Follow Up With: Jasmeet Rodríguez MD [Primary Care Provider] - 07/05/16 9:45 am Isaura Grant CNP [Partnered Physician] - 07/18/16 2:30 pm Forms: Work/School Release Additional Instructions: Follow up with Cardiology within 7 days regarding this hospital stay. Follow up with your primary care physician within 7 days. You have been sent home with scripts for Plavix, aspirin, Metoprolol, and lipitor. Take these medications as directed. Seek medical attention if site of intervention becomes significantly more painful, red, swollen, loss of sensation or numbing, or drainage. It is recommended that you do not perform strenuous activities through the next two weeks. You will be sent home with a work note that attests to these limitations. - Diet and Activity Activity: increase activity as tolerated Diet: low fat, low cholesterol Interval History: Patient reports doing well overnight. Denies chest pain or pressure, shortness of breath, epigastric tenderness or pressure, or discomfort overnight. Patient denies fevers, chills, sweats, headaches, changes in vision or hearing, chest pain, nausea, vomiting, shortness of breath, abdominal pain, changes in bowels or bladder, weakness, or loss of sensation. Hospital course: Mr. Cramer is a 75 year old male wit history of hypertension, hyperlipidemia , and gout who presented to the ED with complaint of chest discomfort described as pressure and tightness that has been going on for about 5 days intermittently prior to arrival. Patient reports he took a yellow pill for heartburn with some relief, but returned the following day. Patient reports family history of cardiac disease, no history of tobacco use. Patient denies fevers, chills, sweats, headaches, dizziness, lightheadedness, chest "pain", shortness of breath, changes in bowels or bladder, weakness, or loss of sensation. On workup in the ED, the patient was found to have an elevated troponin of 0.68. EKG x2 revealed normal sinus rhythm without st changes or t wave inversions. Patient was admitted for further workup of elevated troponins. Cardio was consulted, patient was started on heparin drip, beta jarad, aspirin, and Lipitor. Patient underwent LHC which revealed severe three vessel coronary artery disease (LAD, RCA, Circumflex), LV normal with EF of 55%, and successful PTCA/TERESITA placed in distal RCA. Echo revealed normal LV systolic function LVEF 55%, mild LV diastolic dysfunction, normal RV, mild mitral regurgitation. Patient was started on Plavix. Cardio recommends follow up within 1 week, continue beta jarad, aspirin, plavix, and lipitor. - Time Spent with Patient Total time spent providing and/or coordinating discharge services: Less than 30 minutes - Constitutional Vitals: Temp Pulse Resp BP Pulse Ox 97.8 F 63 16 121/67 97 06/26/16 11:36 06/26/16 11:36 06/26/16 11:36 06/26/16 11:36 06/26/16 11:36 General appearance: Present: cooperative, A&O X 3, pleasant, no acute distress, answers questions appropriately - Head Head exam: Present: atraumatic, normal inspection, normocephalic - Eye Eye exam: Present: normal appearance - ENT ENT exam: Present: mucous membranes moist, normal exam, normal external ear exam , normal oropharynx - Neck Neck exam general surgery: Present: full ROM, normal inspection, supple, trachea midline. Absent: tenderness - Respiratory Respiratory exam: Present: CTAB. Absent: rales, rhonchi, wheezes - Cardiovascular Cardiovascular exam: Present: RRR, +S1, +S2 - GI/Abdominal GI/Abdominal exam: Present: normal bowel sounds, soft. Absent: distended, guarding, tenderness - Extremities Exam Extremities exam: Present: full ROM, normal inspection, warm. Absent: pedal edema, tenderness - [place] Incision: Present: clean and dry, intact. Absent: draining, swollen, inflamed, erythema - Neurological Exam Neurological exam: Present: alert, normal gait, oriented X3, no focal deficits, strengths equal and symetr throughout. Absent: facial droop, speech deficit - Psychiatric Psychiatric exam: Present: normal affect, normal mood - Skin Skin exam: Present: dry, intact, normal color, warm. Absent: diaphoretic, erythema, pallor <Rachel,Sincere P - Last Filed: 06/26/16 16:53> Date of Encounter: 06/26/16 Procedures/tests Complete & Pending: Procedures Performed prior 72 hours Category Date Time Status CL Cardiac Catheterization [CL] Routine Documentation Spec 06/25/16 10:25 Completed ECG 12 lead ECG [ECG] Routine Y 06/25/16 00:22 Completed Date of admission: 06/24/16 22:48 Primary care physician: Jasmeet Rodríguez MD Consults: 06/25/16 10:26 Consult to Cardiac Rehabilitation-Phase1 [CONS] Routine Comment: Reason for Consult: NSTEMI Call Completed: No Hospital course: Mr. Cramer is a 75 year old male - Time Spent with Patient Total time spent providing and/or coordinating discharge services: - Constitutional Vitals: Temp Pulse Resp BP Pulse Ox 97.8 F 63 16 121/67 97 06/26/16 11:36 06/26/16 11:36 06/26/16 11:36 06/26/16 11:36 06/26/16 11:36 - Attending Attestation I examined this patient and my medical decision-making was reviewed with the MAINTENA[employer]OB [employer]LES/PA/Advanced Practice Nurse/Resident Physician. I agree with the documented findings, disposition and treatment plan as described except to the extent set forth below.
== END 2016-06-26 16:00 | disposition home or self-care (01) | DRG 247 ==
LOC: 2NENU 15:56 → EMEROO 15:56 → 2NENU 21:37
PROVIDERS: ADMIT Internal Medicine; ATTEND Internal Medicine